=== PATIENT | male | born 1985 | race African-American/Black ===

== ENCOUNTER 2016-12-09 17:30 | Inpatient (IN) | payer MEDICAID ==
[~2016-12-09] VITALS: Ht 177.8 cm; Wt 79.5 kg
--- NOTE | 2016-12-09 17:34 | NUR ---
BBRA 102 FROM [facility] HD FOR SOB X 2 DAYS. NON COMPLIANT WITH MEDS AND HD WORSENING WHILE ON HD. DID NOT RECEIVE LAST 20 MIN OF HD
--- NOTE | 2016-12-09 17:40 | NUR ---
DR VELASCO AT BEDSIDE FOR EVAL
--- NOTE | 2016-12-09 17:54 | NUR ---
RFA #20 IV ACCESS. BLOOD SAMPLE COLLECTED SENT TO LAB
[2016-12-09 17:59] LABS: BASOPHILS % (AUTO) 0.2 % (0.0-2.0); EOSINOPHILS # (AUTO) 0.2 /CMM (0.0-0.7); EOSINOPHILS % (AUTO) 2.8 % (0.0-6.0); HEMATOCRIT 32 % (39-51); HEMOGLOBIN 10.5 g/dL (13.5-17.5); LYMPHOCYTES # (AUTO) 1.1 /CMM (0.8-4.8); LYMPHOCYTES % (AUTO) 16.8 % (20.0-44.0); MEAN CORPUSCULAR HEMOGLOBIN 32 PG (26.0-33.0); MEAN CORPUSCULAR HGB CONC 33 g/dl (31.0-36.0); MEAN CORPUSCULAR VOLUME 98 fL (80-96); MONOCYTES # (AUTO) 0.4 /CMM (0.1-1.30); MONOCYTES % (AUTO) 5.6 % (2.0-12.0); NEUTROPHILS # (AUTO) 5.1 /CMM (1.8-8.9); NEUTROPHILS % (AUTO) 74.6 % (43.0-81.0); PLATELET COUNT (AUTO) 202 /CMM (150-450); RED BLOOD CELL COUNT(AUTO) 3.28 MIL/uL (4.5-6.0); WHITE BLOOD COUNT (AUTO) 6.8 K/uL (4.3-11.0)
[2016-12-09] MEDS ORDERED: SEVE800T8 PO (17:59)
[2016-12-09] MEDS ORDERED: CARV12.52 PO (17:59)
[2016-12-09] MEDS ORDERED: FOLI0.8T2 PO (17:59)
[2016-12-09] MEDS ORDERED: CINA30TA PO (17:59)
[2016-12-09] MEDS ORDERED: HYDR-552 PO (17:59)
[2016-12-09] MEDS ORDERED: ONDA4TAB5 PO (17:59)
[2016-12-09] MEDS ORDERED: NIFE30TA2 PO (17:59)
[2016-12-09] MEDS ORDERED: METO25TA20 PO (17:59)
--- NOTE | 2016-12-09 18:05 | NUR ---
PT REFUSED STRAIGHT CATH
--- NOTE | 2016-12-09 18:06 | NUR ---
TIME MOTION ANALYST AT BEDSIDE
[2016-12-09 18:09] LABS: CALCIUM, SERUM 8.9 mg/dL (8.5-10.1); POTASSIUM 4.2 mmol/L (3.5-5.1)
[2016-12-09 18:12] LABS: INR 1.07 (0.87-1.13); PROTHROMBIN TIME 11.1 SECS (9.5-12.7)
[2016-12-09 18:13] LABS: CREATININE 7.7 mg/dL (0.6-1.3)
[2016-12-09 18:13] LABS: ABG BASE EXCESS 9.4 mmol/L; ABG OXYGEN SATURATION 95.9 % (92.0-98.5); ABG PCO2 43.4 mmHg (35.0-45.0); ABG PH 7.505 (7.350-7.450); ABG PO2 84.9 mmHg (75.0-100.0); AaDO2 63.5 mmHg; COHb 0.5 % (0.5-1.5); MetHb 0.3 % (0.0-1.5); O2Hb 95.1 % (94.0-97.0); SITE, ABG Left Radial; VENT MODE, BG NASAL CANNULA
[2016-12-09 18:15] LABS: ALBUMIN 3.5 g/dL (3.4-5.0); BILIRUBIN,DIRECT 0.3 mg/dL (0.0-0.2); BILIRUBIN,TOTAL 1.1 mg/dL (0.2-1.0); TOTAL PROTEIN, SERUM 8.8 g/dL (6.4-8.2)
[2016-12-09 18:17] LABS: TROPONIN I 0.051 ng/mL (0.00-0.056)
--- NOTE | 2016-12-09 18:21 | NUR ---
URINE SAMPLE COLLECTED SENT TO LAB
[2016-12-09 18:59] LABS: APPEARANCE,URINE CLEAR (CLEAR); BILIRUBIN,URINE NEGATIVE (NEGATIVE); BLOOD, URINE 1+ Ery/uL (NEGATIVE); COLOR,URINE YELLOW (YELLOW); KETONES,URINE NEGATIVE (NEGATIVE); LEUKOCYTE ESTERASE ,URINE NEGATIVE (NEGATIVE); NITRITE, URINE NEGATIVE (NEGATIVE); PH,URINE 8.5 (5.0-8.0); PROTEIN,URINE 3+ mg/dl (NEGATIVE); UGLUCOSE 1+ mg/dL (NEGATIVE); UROBILINOGEN,URINE 0.2 EU/dL (0.2)
--- NOTE | 2016-12-09 19:08 | NUR ---
RECEIVED REPORT FROM ELIJAH BRO FOR [facility].
[2016-12-09 19:17] LABS: BACTERIA,URINE None seen /HPF (None Seen); RBC,URINE 0-2 /HPF (0-2); SQUAMOUS EPITHELIAL CELL,UR Few /HPF (None Seen); WBC,URINE 0-2 /HPF (0-3)
[2016-12-09] MEDS ORDERED: LORAZEPAM INJ 2 MG/ML VIAL IV ONE ×2 (19:30→20:30)
[2016-12-09] MEDS ORDERED: DIAZEPAM 5 MG/ML 2 ML DISP.SYRIN IV ONE (19:30)
[2016-12-09] MEDS ORDERED: LORAZEPAM INJ 2 MG/ML VIAL ONE ×2 (19:31→20:41)
--- NOTE | 2016-12-09 19:54 | NUR ---
PT ASSIGNED TO [facility]
--- NOTE | 2016-12-09 19:57 | NUR ---
REPORT GIVEN TO ELIJAH HINTONANGEL
[2016-12-09] MEDS ORDERED: ALBUTEROL FS 2.5 MG/0.5 ML VIAL.NEB NEB PRN (20:00)
[2016-12-09] MEDS ORDERED: HYDROCODONE/APAP 5/325MG 1 EACH TABLET PO PRN (20:00)
[2016-12-09] MEDS ORDERED: ZOLPIDEM TARTRATE 5 MG TABLET PO PRN (20:00)
[2016-12-09] MEDS ORDERED: IPRATROPIUM NEB FS 0.5 MG/2.5 ML AMPUL.NEB NEB PRN (20:00)
[2016-12-09] MEDS ORDERED: ACETAMINOPHEN 325 MG TABLET PO PRN (20:00)
[2016-12-09] MEDS ORDERED: MAG HYDROX/AL HYDROX/SIMETH 30 ML UDC PO PRN (20:00)
[2016-12-09] MEDS ORDERED: MAGNESIUM HYDROXIDE 30 ML UDC PO PRN (20:00)
[2016-12-09] MEDS ORDERED: ONDANSETRON HCL/PF 4 MG/2 ML VIAL IVP PRN (20:00)
[2016-12-09] MEDS ORDERED: Z GUARD REMEDY 2 OZ OINT TP PRN (20:00)
--- NOTE | 2016-12-09 20:08 | NUR ---
PT ASSIGNED TO [facility] [id number]
[2016-12-09] MEDS ORDERED: ZIPRASIDONE MESYLATE 20 MG/VIAL VIAL IM ONE ×2 (20:30→20:40)
--- NOTE | 2016-12-09 20:38 | NUR ---
REPORT GIVEN TO ELIJAH FOLEY FOR [facility].
[2016-12-09] MEDS ORDERED: WATER FOR INJECTION,STERILE 10 ML ONE (20:41)
[2016-12-09 21:00] VITALS: BP 160/100
--- NOTE | 2016-12-09 21:00 | NUR ---
pt arrived by gurney from ER, pt is lethargic, arousable but doses back to sleep ,pt was given ativan 5mins prior to arrival to the room per transport, pt attached to monitor and noted sinus tachy US=[id number]'s,expiratory wheezes and 93% room, placed on oxygen 3 liters. plantar foot with open wound, picture taken cleans and cover with mepilex. awaiting till pt more awake to obtain info for admission process.
--- NOTE | 2016-12-09 23:23 | NUR ---
Dr. Luis Coreas came and saw pt, pt is still lethargic spo2 97% on 3 liters, order Stat ABG, RT called and made aware of orders.
[2016-12-09] MEDS ORDERED: FUROSEMIDE 100 MG/10 ML VIAL ONE (23:33)
[2016-12-10] VITALS: BP 160/104
[2016-12-10] MEDS ORDERED: FUROSEMIDE 100 MG/10 ML VIAL IV ONE
--- NOTE | 2016-12-10 00:02 | NUR ---
new orders, lasix 80 mg ivp given, abg drawn and resulted and message troponin lab drawn ,awaiting for result, sinus tachy 120 on monitor, pt remains the same not in acute distress.
--- NOTE | 2016-12-10 01:32 | NUR ---
pt HR 114-116, pt waking up ,noted turning self to side, called his name,pt just try to open eyes and went back to sleep, asked if he knows he is in the hospital, pt just nod his head, bp remains elevated 160/107 hr 112, paged Dr. Smith but still awaiting for call back.
[2016-12-10 04:00] VITALS: BP 160/100
--- NOTE | 2016-12-10 04:07 | NUR ---
pt with eyes close sits up in the bed saying "i don't feel good", but when asked ,pt went back to sleep lying back to bed, checked sugar ,fingerstick 117mg/dl, bp 160/100, temp 98.7, spo2 97% on 3 liters. pt talking to his sleep and sometimes get up sits in the bed trying to void even assisted to use urinal but unable to start to void then went back to sleep. pt still lethargic, responds to questions at times then doses back to sleep. will continue to monitor,kept nasal cannula in place.
--- NOTE | 2016-12-10 04:30 | NUR ---
pt is waking up, but still droggy, complains of abdominal pain, pt offered to eat but refused sandwich , instead pt requested ice chips and ate his bag of chips. pt refused norco and requested morphine,pt verbalizes going home and want to call mother to sweet pickle maker. pt made aware pt will not get any narcotics if he will go home in less than 2 hrs after narcotic. pt stated norco wont work.we will ask md for order. assisted x2 to toilet ambulating, finally voided but not saved and had a bm. and sob noted after walking, placed back on oxygen 3 liters and instructed to stay in bed. will continue to monitor, foot dressing intact.
[2016-12-10 07:14] VITALS: BP 149/100
[2016-12-10] MEDS ORDERED: PANTOPRAZOLE 40 MG TABLET.DR PO SCH (07:30)
[2016-12-10 08:00] VITALS: BP 146/110
[2016-12-10] MEDS: SEVELAMER CARBONATE 800 MG TABLET PO SCH ×2 (08:00→13:33)
--- NOTE | 2016-12-10 08:14 | NUR ---
RN NOTES RECEIVED PT. PT IS AWAKE AND LETHARGIC IN BED. PT DOES NOT APPEAR TO BE IN RESPIRATORY DISTRESS OR SOB. NO C/O PAIN AT THIS TIME. BP IS TAKEN AT 0700, 146/110 WILL ADDRESS PHARMACOLOGICALLY. WILL ADDRESS ALL PT NEEDS. SAFETY MEASURES IN PLACE, CALL LIGHT WITHIN REACH. WILL CONTINUE TO MONITOR.
[2016-12-10] MEDS ORDERED: NIFEdipine XL (30MG) 30 MG TAB PO SCH (09:00)
[2016-12-10] MEDS ORDERED: CARVEDILOL 12.5 MG TABLET PO SCH (09:00)
[2016-12-10] MEDS ORDERED: METOPROLOL TARTRATE 25 MG TABLET PO SCH (09:00)
--- NOTE | 2016-12-10 09:00 | NUR ---
RN NOTES PT REMAINS LETHARGIC. O2 SAT RANGING BETWEEN 85-96% RR AT 24/MIN. O2 RAISED TO 4L, HOB RAISED. O2 SAT RECHECKED AND ABOVE 93% WITHIN HALF HOUR. DIALYSIS NURSE IS BEDSIDE PERFORMING PROCEDURE. PT REMAINS NON COMPLIANT, CONTINUES TO REMOVE TELE MONITOR. DISCUSSED WITH PT IMPORTANCE OF MONITOR, TELE REAPPLIED. WILL CONTINUE TO MONITOR.
[2016-12-10 10:29] LABS: BASOPHILS % (AUTO) 0.2 % (0.0-2.0); EOSINOPHILS # (AUTO) 0.1 /CMM (0.0-0.7); EOSINOPHILS % (AUTO) 1.6 % (0.0-6.0); HEMATOCRIT 33 % (39-51); HEMOGLOBIN 10.9 g/dL (13.5-17.5); LYMPHOCYTES # (AUTO) 0.8 /CMM (0.8-4.8); LYMPHOCYTES % (AUTO) 10.1 % (20.0-44.0); MEAN CORPUSCULAR HEMOGLOBIN 32 PG (26.0-33.0); MEAN CORPUSCULAR HGB CONC 33 g/dl (31.0-36.0); MEAN CORPUSCULAR VOLUME 98 fL (80-96); MONOCYTES # (AUTO) 0.3 /CMM (0.1-1.30); MONOCYTES % (AUTO) 3.3 % (2.0-12.0); NEUTROPHILS # (AUTO) 6.8 /CMM (1.8-8.9); NEUTROPHILS % (AUTO) 84.8 % (43.0-81.0); PLATELET COUNT (AUTO) 222 /CMM (150-450); RDW COEFFICIENT OF VARIATION 17.7 (11.5-15.0); RED BLOOD CELL COUNT(AUTO) 3.38 MIL/uL (4.5-6.0)
[2016-12-10 10:51] LABS: CALCIUM, SERUM 9.1 mg/dL (8.5-10.1); CREATININE 6.7 mg/dL (0.6-1.3); MAGNESIUM 2.1 mg/dL (1.8-2.4); PHOSPHORUS 4.5 mg/dL (2.5-4.9); POTASSIUM 4.3 mmol/L (3.5-5.1)
[2016-12-10 10:53] LABS: THYROID STIMULATING HORMONE 3.658 uIU/mL (0.358-3.74)
[2016-12-10 12:00] VITALS: BP_SYST 135; BP_SYST 158; BP_DIAS 76; BP_DIAS 96
--- NOTE | 2016-12-10 16:49 | NUR ---
DISCHARGE NOTES PT DISCHARGED AMA. PT INSISTED ON LEAVING AGAINST MEDICAL ADVICE DESPITE MULTIPLE ATTEMPTS OF ENCOURAGEMENT TO STAY. PATIENT STATED THAT "i DONT DO WELL IN HOSPITALS". RISKS OF LEAVING EXPLAINED AND NEED FOR CONTINUED DIALYSIS TAUGHT TO PT. PT VERBALIZED UNDERSTANDING OF RISKS Addendum: 12/10/16 at 1655 by KATLYN CEBALLOS (CONT.) YET CHOSE TO LEAVE REGARDLESS. PT A/OX4, VSS, NO S/S OF RESPIRATORY DISTRESS. AMA DOCUMENTATION SIGNED, BELONGINGS LIST SIGNED AND COPIED. EXITCARE PROVIDED. IV ACCESS REMOVED, ID BAND REMOVED. PT WAS ESCORTED TO THE FRONT ENTRANCE AND LEFT W/OUT ESCORT.
[2016-12-10] MEDS ORDERED: CINACALCET HCL 30 MG TABLET PO SCH (18:00)
== END 2016-12-10 15:45 | disposition left against medical advice (07) | DRG 470 ==
LOC: ER 17:32 → TELE 20:22
DX: I12.0 Hypertensive chronic kidney disease with stage 5 chronic kidney disease or end stage renal disease (principal); J96.01 Acute respiratory failure with hypoxia; J90 Pleural effusion, not elsewhere classified; N17.9 Acute kidney failure, unspecified; J81.0 Acute pulmonary edema; N18.6 End stage renal disease; Q61.3 Polycystic kidney, unspecified; Z99.2 Dependence on renal dialysis; Z79.899 Other long term (current) drug therapy; Z79.4 Long term (current) use of insulin; E87.70 Fluid overload, unspecified; D63.8 Anemia in other chronic diseases classified elsewhere; D53.9 Nutritional anemia, unspecified; Z89.429 Acquired absence of other toe(s), unspecified side; F17.200 Nicotine dependence, unspecified, uncomplicated; E11.22 Type 2 diabetes mellitus with diabetic chronic kidney disease
CPT/HCPCS: 36415; 36600; 71010-TC; 80048-TC; 80061-TC; 80076-TC; 81000-TC; 82803-TC; 82962-TC; 83605-TC; 83735-TC; 83880; 84100-TC; 84443-TC; 84484-TC; 85025-TC; 85730-TC; 87040-TC; 87081-TC; 87086-TC; 90935-TC; A4606; J1940; J2060; J2405; J3486; Z7610

== ENCOUNTER 2018-10-16 04:42 | Emergency (ER) | payer MEDICAID ==
[~2018-10-16] VITALS: Ht 170.2 cm; Wt 80.3 kg
[~2018-10-16 04:42] MED LIST: CARV12.52 PO; CINA30TA2 PO; FOLI0.8T2 PO; HYDR-4384 PO; METO25TA20 PO; NIFE30TA2 PO; ONDA4TAB5 PO; SEVE800T8 PO
--- NOTE | 2018-10-16 04:51 | NUR ---
[facility] FROM [facility]IS [facility]. TO ER BED 10. AAOX3. NO RESP DISTRESS NOTED. C/O ADOMINAL PAIN WHILE HAVING DIALYSIS. HD WAS NOT FINISHED. PT NOTED WITH PERMA CATH ON L CHEST. BILAT FOOT AMPUTATION NOTED. MD AT BEDSIDE. AWAITING ORDERS
[2018-10-16] MEDS ORDERED: ONDANSETRON HCL/PF 4 MG/2 ML VIAL ONE (04:58)
[2018-10-16] MEDS ORDERED: MORPHINE SULFATE INJ 4 MG/ML DISP.SYRIN ONE (04:58)
[2018-10-16] MEDS ORDERED: MORPHINE SULFATE INJ 2 MG/ML DISP.SYRIN IV ONE (05:00)
[2018-10-16] MEDS ORDERED: IV NS 0.9% 1,000 ML BAG IV ONE (05:00)
[2018-10-16] MEDS ORDERED: ONDANSETRON HCL/PF 4 MG/2 ML VIAL IVP ONE (05:00)
[2018-10-16 05:12] LABS: BASOPHILS # (AUTO) 0.1 /CMM (0.0-0.2); BASOPHILS % (AUTO) 1.6 % (0.0-2.0); EOSINOPHILS % (AUTO) 5.2 % (0.0-6.0); HEMATOCRIT 39 % (39-51); HEMOGLOBIN 13.3 g/dL (13.5-17.5); LYMPHOCYTES # (AUTO) 1.2 /CMM (0.8-4.8); LYMPHOCYTES % (AUTO) 22.3 % (20.0-44.0); MEAN CORPUSCULAR HGB CONC 34 g/dl (31.0-36.0); MEAN CORPUSCULAR VOLUME 99 fL (80-96); MONOCYTES # (AUTO) 0.4 /CMM (0.1-1.30); MONOCYTES % (AUTO) 8.1 % (2.0-12.0); NEUTROPHILS # (AUTO) 3.2 /CMM (1.8-8.9); NEUTROPHILS % (AUTO) 62.8 % (43.0-81.0); PLATELET COUNT (AUTO) 190 /CMM (150-450); RED BLOOD CELL COUNT(AUTO) 3.99 MIL/uL (4.5-6.0); WHITE BLOOD COUNT (AUTO) 5.2 K/uL (4.3-11.0)
[2018-10-16 05:26] LABS: BILIRUBIN,DIRECT 0.3 mg/dL (0.0-0.2); BILIRUBIN,TOTAL 1.1 mg/dL (0.2-1.0); POTASSIUM 5.2 mmol/L (3.5-5.1); TOTAL PROTEIN, SERUM 9.1 g/dL (6.4-8.2)
[2018-10-16 05:41] LABS: CREATININE 8.6 mg/dL (0.6-1.3)
--- NOTE | 2018-10-16 05:58 | NUR ---
MD AWARE THAT PT IS UNABLE TO PROVIDE URINE AT THIS TIME. PT IS HD PT.
--- NOTE | 2018-10-16 06:33 | NUR ---
PT TO RADIOLOGY ON [facility]
[2018-10-16 07:18] VITALS: BP 125/82
--- NOTE | 2018-10-16 07:21 | NUR ---
REPORT GIVEN TO CATRACHITO HALL RN FOR [facility]
--- NOTE | 2018-10-16 07:47 | NUR ---
TALKED TO CHRISTOPHER MCDONOUGH'S MOM TO PICK HIM UP.
--- NOTE | 2018-10-16 07:56 | NUR ---
IV removed. Catheter intact and site benign. Pressure and 4x4 applied to site. No bleeding noted. Patient discharged to home in stable condition. Written and verbal after care instructions given. Patient verbalizes understanding of instruction.
== END 2018-10-16 07:58 | disposition home or self-care (01) ==
LOC: ER 04:43
DX: R10.84 Generalized abdominal pain (principal); E11.22 Type 2 diabetes mellitus with diabetic chronic kidney disease; I12.0 Hypertensive chronic kidney disease with stage 5 chronic kidney disease or end stage renal disease; N18.6 End stage renal disease; R11.2 Nausea with vomiting, unspecified; R00.0 Tachycardia, unspecified; Z99.2 Dependence on renal dialysis; Z98.890 Other specified postprocedural states
CPT/HCPCS: 36415; 71045; 74176; 80048; 80076; 83690; 84484; 85025; 93005; 85730; 96361; 96374; 96375; 99284; J2270; J2405; J7030